=== PATIENT | male | born 1985 | race African-American/Black ===

== ENCOUNTER 2021-11-19 10:54 | Outpatient (REF) | payer SELFPAY ==
[2021-11-19 11:28] LABS: COVID-19 Test Positive (Negative); IDNOW Serial# 16C4AD1C
== END 2021-11-19 10:55 | disposition home or self-care (01) ==
LOC: HO.LAB 10:54
PROVIDERS: Visit Provider Internal Medicine
DX: Z20.822 Contact with and (suspected) exposure to COVID-19 (principal)
CPT/HCPCS: 87635; C9803

== ENCOUNTER 2022-06-14 09:17 | Outpatient (REF) | payer BC, SELFPAY ==
[2022-06-14 10:36] LABS: Hematocrit 38.5 % (42.0-52.0); Hemoglobin 13.2 g/dl (14.0-18.0); Mean Corpuscular HGB Conc 34.3 g/dl (31.0-36.0); Mean Corpuscular Hemoglobin 30.1 pg (27.0-33.0); Mean Corpuscular Volume 87.9 fL (80.0-98.0); Mean Platelet Volume 9.3 fL (9.4-12.4); Platelet Count 277 X10*3/uL (160-400); Red Blood Count 4.38 X10*6/uL (4.60-5.80); Red Cell Distribution Width 11.8 % (11.0-16.0); White Blood Count 4.7 X10*3/uL (4.8-10.8)
[2022-06-14 11:58] LABS: Alanine Aminotransferase 20 U/L (0-40); Alkaline Phosphatase 81 U/L (39-117); Anion Gap 14 (12-20); Aspartate Amino Transferase 16 U/L (5-37); Bilirubin Total 0.9 mg/dL (0.0-1.0); Blood Urea Nitrogen 18 mg/dL (9-16); Calcium 8.8 mg/dL (8.4-10.2); Carbon Dioxide 21 mmol/L (22-29); Chloride 109 mmol/L (96-108); Cholesterol 170 mg/dL; Estimated Glomerular Filt Rate > 60; Glucose Fasting 93 mg/dL (60-99); HDL Cholesterol 52 mg/dL; LDL Cholesterol Calculated 110 mg/dl; Potassium 4.4 mmol/L (3.3-5.1); Sodium 140 mmol/L (135-145); Total Protein 6.7 g/dL (6.5-8.0); Triglycerides 43 mg/dL
[2022-06-14 12:05] LABS: TSH reflex Free T4 0.34 uIU/mL (0.32-4.0); Vitamin D 25-OH Total 6.1 ng/mL (>30)
== END 2022-06-14 09:18 | disposition home or self-care (01) ==
LOC: HO.LAB 09:17
PROVIDERS: PCP Nurse Practitioner Family; Visit Provider Nurse Practitioner Family
DX: Z00.00 Encounter for general adult medical examination without abnormal findings (principal); E55.9 Vitamin D deficiency, unspecified
CPT/HCPCS: 36415; 80053; 80061; 82306; 84443; 85027

== ENCOUNTER 2022-10-10 12:16 | Outpatient (REF) | payer BC, SELFPAY ==
[2022-10-10 14:48] LABS: Hemoglobin 13.6 g/dl (14.0-18.0); Mean Corpuscular Volume 88.1 fL (80.0-98.0); Mean Platelet Volume 9.9 fL (9.4-12.4); Platelet Count 214 X10*3/uL (160-400); Red Blood Count 4.54 X10*6/uL (4.60-5.80); Red Cell Distribution Width 11.9 % (11.0-16.0); White Blood Count 4.8 X10*3/uL (4.8-10.8)
[2022-10-10 15:34] LABS: Vitamin D 25-OH Total 27.8 ng/mL (>30)
== END 2022-10-10 12:17 | disposition home or self-care (01) ==
LOC: HO.WFDLDS 12:16
PROVIDERS: Visit Provider Nurse Practitioner Family
DX: E55.9 Vitamin D deficiency, unspecified (principal); R03.0 Elevated blood-pressure reading, without diagnosis of hypertension
CPT/HCPCS: 36415; 82306; 85027

== ENCOUNTER 2022-10-13 16:11 | Outpatient (AMB) | payer BC, SELFPAY ==
--- NOTE | 2022-10-13 16:15 | MHC.PC.OV ---
Vital Signs 10/13/22 16:16 10/13/22 16:38 Height 6 ft 6 in Weight 294 lb 2 oz BMI 34.0 BP 136/84 160/110 H Blood Pressure Location Rt brachial Lt brachial Position Sitting Sitting Respiration 12 Pulse 65 Pulse Source Pulse Oximeter Temp 97.9 F Temp Source Temporal Artery Scan Pulse Oximetry (%) 98 Oxygen Delivery Method Room Air Intake Visit Reasons: 2 mos elevated BP Computer Support Specialist Required: No Accompanied by: Self / Same As Patient Allergies No Known Allergies [No Known Allergies*] Allergy (Verified 10/13/22 16:21) Tobacco use date assessed: 05/20/22 Dental Screening Dental Screen Date: 10/13/22 Did you have a dental visit in the last 12 months?: No Did you have a dental problem in the last 6 months where you did not have access to dental care?: Yes Was dental information given to patient?: Patient has dentist HPI HPI Comments History of Present Illness Details 36-year-old male presents for hypertension follow-up. He notes that he has been exercising and maintaining a low-sodium diet. No acute symptoms. He notes that his father has hypertension. He notes that his mother from recurrence of colon cancer almost 2 weeks ago and is grieving well. COUNT INCLUDES THE [facility] Medical History (Updated 10/13/22 @ 16:38 by Augustus Mast CNP) No pertinent past medical history Surgical History (Updated 10/13/22 @ 16:22 by Johanny Fleming MA) No pertinent past surgical history Family History (Updated 10/13/22 @ 16:23 by Johanny Fleming MA) Father Hypertension Mother Colon cancer Breast cancer Social History (Updated 05/20/22 @ 11:18 by Huyen Herndon MA) Household Members: Spouse Housing: Condominium Alcohol intake: current Alcohol intake frequency: a few times a week Alcohol type: hard liquor Patient Tobacco Use Status: Former Tobacco user e-Cigarette/Vaping Use: Currently Using service: No Current occupational status: employed 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 Leodan Schrader, Kayleen Grimes, Kaveh Lei and colleagues, with an educational zachariah from [employer]. Review of Systems Const Details: Const Denies chills, Denies fatigue, Denies fever(s), Denies headache(s) and Denies weakness ENT Denies dizziness and Denies headache(s) Card Denies chest pain, Denies lightheadedness, Denies dyspnea and Denies other (Palpitations) Resp Denies cough, Denies dyspnea, Denies wheezing and Denies other ( shortness of breath) GI Denies abdominal pain, Denies melena, Denies hematochezia, Denies change in bowel habits, Denies dyspepsia and Denies nausea Denies hematuria and Denies dysuria Musc Denies abnormal gait, Denies myalgias, Denies arthralgias, Denies numbness and Denies tingling Skin/Breast Denies rash, Denies unusual bruising and Denies wounds Neuro Denies abnormal gait, Denies dizziness, Denies headache(s), Denies memory loss, Denies numbness, Denies Sensory deficit (Neuro), Denies tingling and Denies weakness Psych Denies anxiety and Denies depression Endo Denies fatigue Aller/Immun Denies wheezing Physical exam (Primary Care) Tobacco/Smoking Status: Tobacco use Status Tobacco use date assessed 05/20/22 08/18/22 16:24 Patient Tobacco Use Status Never used Tobacco 08/18/22 16:24 Thrive Assessment: Date of Thrive Assessment Date Thrive assessed 05/20/22 08/18/22 16:24 Const Other: General: no acute distress and well developed Nutritional Appearance: well nourished Orientation/consciousness: patient oriented x3 HENMT Head: Yes normocephalic and Yes atraumatic Eyes General: appearance normal, both eyes and all related structures Pupils: Equal, round and reactive pupils present EOM: EOMs intact bilaterally Resp Effort & Inspection: normal respiratory effort Auscultation: clear to auscultation bilaterally Cardio Rate: regular rate Rhythm: regular rhythm Heart sounds: S1 normal heart sound present, S2 normal heart sound present, no gallops, no murmurs and no rubs GI Palpation (GI): No Abdominal aortic bruit present, Soft to palpation, nontender, No hepatosplenomegaly present and No Rebound tenderness present Auscultation: normal bowel sounds General: Yes no CVA tenderness Back/Spine/Pelvis Back: no CVA tenderness Cervical Spine: cervical ROM normal and No Cervical spine tenderness Thoracic/Lumbar Spine: thoraco-lumbar ROM normal, No pain with thoraco-lumbar ROM, No thoracic spinal tenderness and No lumbar spinal tenderness Extrem General: Yes normal to inspection, No edema and No calf tenderness Skin General: warm and dry. Normal skin color. Normal skin turgor Lesions: no lesions Rashes: no rashes Trauma: no lacerations or abrasions Wounds: no wounds Nails: normal Neuro General: patient oriented x3, gait normal and no focal neuro deficit Cranial nerves: Yes Equal, round and reactive pupils present Cognition (Neuro): normal cognition Gait exam (Neuro): Normal gait present Sensory Exam: No Sensory deficit (Neuro) Psych Affect: normal affect Assessment and Plan Assessment & Plan (1) Hypertension: Code(s): I10 - Essential (primary) hypertension Plan: His resting blood pressure is elevated, 160/110, above goal of less than 140/90 Amlodipine ordered. Take as prescribed Low-sodium diet and routine exercise encouraged Follow-up for nurse visit for blood pressure check in 1 week Return in 1 month or sooner with symptoms or concerns Verbalized understanding and agreed with treatment plan (2) Vitamin D deficiency: Code(s): E55.9 - Vitamin D deficiency, unspecified Plan: His vitamin-D level improved from 6.1 to 27.8 Continue to take Cholecalciferol as prescribed Sun exposure of may improve or maintain vitamin-D level Follow-up with symptoms or concerns Verbalized understanding and agreed with the treatment plan Medications: New amlodipine 5 mg PO DAILY 30 tabs 3RF 30 days Coding Level of Care Code Est Pt Level 3 (37268) Diagnoses Hypertension I10 Vitamin D deficiency E55.9 Time Spent (min) 25
[2022-10-13 16:16] VITALS: BP 136/84; PULSE 65; RESP 12; TEMP 36.6; O2SAT 98; BMI 34.0
[2022-10-13 16:38] VITALS: BP 160/110
== END 2022-10-13 16:38 | disposition home or self-care (01) ==
PROVIDERS: Visit Provider Nurse Practitioner Family
DX: I10 Essential (primary) hypertension (principal); E55.9 Vitamin D deficiency, unspecified
CPT/HCPCS: 99213

== ENCOUNTER 2022-11-07 11:46 | Outpatient (REF) | payer BC, SELFPAY ==
[2022-11-07 16:23] LABS: Ferritin 291 ng/mL (20-250)
[2022-11-08 01:45] LABS: Iron 109 mcg/dL (45-160); Percent Iron Saturation 43 % (15-50); Total Iron Binding Capacity 253 mcg/dL (228-428); Unsaturated Iron Binding 144 ug/dL
[2022-11-08 02:12] LABS: Folate 10.5 ng/mL (> or = 4.0); Vitamin B12 276 pg/mL (200-900)
== END 2022-11-07 11:47 | disposition home or self-care (01) ==
LOC: HO.WFDLDS 11:46
PROVIDERS: Visit Provider Nurse Practitioner Family
DX: D64.9 Anemia, unspecified (principal)
CPT/HCPCS: 36415; 82607; 82728; 82746; 83540

== ENCOUNTER 2022-11-14 15:43 | Outpatient (AMB) | payer BC, SELFPAY ==
--- NOTE | 2022-11-14 15:45 | MHC.PC.OV ---
Vital Signs 11/14/22 15:46 11/14/22 16:02 Height 6 ft 6 in Weight 292 lb BMI 33.7 BP 142/90 H 126/90 H Blood Pressure Location Rt brachial Rt brachial Position Sitting Sitting Respiration 14 Pulse 70 Pulse Source Pulse Oximeter Temp 98.7 F Temp Source Temporal Artery Scan Pulse Oximetry (%) 99 Oxygen Delivery Method Room Air Intake Visit Reasons: 1 mos htn Intake Note: Patient reports he is here to discuss blood pressure. Patient reports he is under stress. Inventory Specialist Required: No Accompanied by: Self / Same As Patient Allergies No Known Allergies [No Known Allergies*] Allergy (Verified 11/14/22 15:51) Tobacco use date assessed: 05/20/22 Dental Screening Dental Screen Date: 11/14/22 Did you have a dental visit in the last 12 months?: Yes Did you have a dental problem in the last 6 months where you did not have access to dental care?: No Was dental information given to patient?: Patient has dentist HPI HPI Comments History of Present Illness Details 37-year-old male presents for hypertension follow-up. Amlodipine was prescribed a month ago. He notes he has been taking the medication as prescribed. No acute symptoms today. 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 Cornelio, Kaveh Lei and colleagues, with an educational zachariah from [employer]. Review of Systems Const Details: Const Denies chills, Denies fatigue, Denies fever(s), Denies headache(s) and Denies weakness ENT Denies dizziness and Denies headache(s) Card Denies chest pain, Denies lightheadedness, Denies dyspnea and Denies other (Palpitations) Resp Denies cough, Denies dyspnea, Denies wheezing and Denies other ( shortness of breath) GI Denies abdominal pain, Denies melena, Denies hematochezia, Denies change in bowel habits, Denies dyspepsia and Denies nausea Denies hematuria and Denies dysuria Musc Denies abnormal gait, Denies myalgias, Denies arthralgias, Denies numbness and Denies tingling Skin/Breast Denies rash, Denies unusual bruising and Denies wounds Neuro Denies abnormal gait, Denies dizziness, Denies headache(s), Denies memory loss, Denies numbness, Denies Sensory deficit (Neuro), Denies tingling and Denies weakness Psych Denies anxiety, Denies depression, Denies memory loss Endo Denies cold intolerance, Denies fatigue, Denies heat intolerance, Denies polydipsia and Denies polyuria Aller/Immun Denies wheezing Physical exam (Primary Care) Vital Signs: Last Vital Signs Temp 98.7 F 11/14/22 15:46 Pulse 70 11/14/22 15:46 Resp 14 11/14/22 15:46 BP 142/90 H 11/14/22 15:46 Pulse Ox 99 11/14/22 15:46 Oxygen Delivery Method Room Air 11/14/22 15:46 BMI result Body Mass Index 33.7 Tobacco/Smoking Status: Tobacco use Status Tobacco use date assessed 05/20/22 11/14/22 15:52 Patient Tobacco Use Status Former Tobacco user 11/14/22 15:52 e-Cigarette/Vaping Use Currently Using 11/14/22 15:52 Thrive Assessment: Date of Thrive Assessment Date Thrive assessed 05/20/22 11/14/22 15:52 Const Other: General: no acute distress and well developed Nutritional Appearance: well nourished Orientation/consciousness: patient oriented x3 HENMT Head: Yes normocephalic and Yes atraumatic Eyes General: appearance normal, both eyes and all related structures Pupils: Equal, round and reactive pupils present EOM: EOMs intact bilaterally Resp Effort & Inspection: normal respiratory effort Auscultation: clear to auscultation bilaterally Cardio Rate: regular rate Rhythm: regular rhythm Heart sounds: S1 normal heart sound present, S2 normal heart sound present, no gallops, no murmurs and no rubs GI Palpation (GI): No Abdominal aortic bruit present, Soft to palpation, nontender, No hepatosplenomegaly present and No Rebound tenderness present Auscultation: normal bowel sounds General: Yes no CVA tenderness Back/Spine/Pelvis Back: no CVA tenderness Cervical Spine: cervical ROM normal and No Cervical spine tenderness Thoracic/Lumbar Spine: thoraco-lumbar ROM normal, No pain with thoraco-lumbar ROM, No thoracic spinal tenderness and No lumbar spinal tenderness Extrem General: Yes normal to inspection, No edema and No calf tenderness Skin General: warm and dry. Normal skin color. Normal skin turgor Lesions: no lesions Rashes: no rashes Trauma: no lacerations or abrasions Wounds: no wounds Nails: normal Neuro General: patient oriented x3, gait normal and no focal neuro deficit Cranial nerves: Yes Equal, round and reactive pupils present Cognition (Neuro): normal cognition Gait exam (Neuro): Normal gait present Sensory Exam: No Sensory deficit (Neuro) Psych Appearance: grossly normal Affect: normal affect Attitude: cooperative Thought process: Normal thought process present Assessment and Plan Assessment & Plan (1) Hypertension: Code(s): I10 - Essential (primary) hypertension Plan: Resting blood pressure is 126/90, slightly above goal of less than 140/90 Amlodipine as prescribed Low-sodium diet encouraged Follow-up in 2 months Return sooner with symptoms or concerns Verbalized understanding and agreed with treatment plan. Coding Level of Care Code Est Pt Level 3 (62262) Diagnoses Hypertension I10
[2022-11-14 15:46] VITALS: BP 142/90; PULSE 70; RESP 14; TEMP 37.1; O2SAT 99; BMI 33.7
[2022-11-14 16:02] VITALS: BP 126/90
== END 2022-11-14 16:09 | disposition home or self-care (01) ==
PROVIDERS: PCP Nurse Practitioner Family; Visit Provider Nurse Practitioner Family
DX: I10 Essential (primary) hypertension (principal)
CPT/HCPCS: 99213

== ENCOUNTER 2024-07-10 21:54 | Emergency (ER) | payer BC, SELFPAY ==
--- NOTE | ~2024-07-10 | XR_ITS ---
CLINICAL HISTORY: pain after punching wooden table --- Additional Notes or Special Instructions: can change order if needed. 3 view right hand Comparison: None Findings: No acute displaced fracture or dislocation of the right hand. Mild deformity of the 5th metacarpal appears old. Soft tissue swelling is nonspecific, including hypothenar region. Superficial opacities noted. IMPRESSION: 1. No acute fracture or dislocation. 2. Soft tissue swelling, including hypothenar region. This document has been electronically signed by: Channing Shah MD on 07/10/2024 22:58:24
[2024-07-10 22:07] VITALS: BP 164/95; PULSE 67; RESP 18; TEMP 36.1; O2SAT 98; BMI 32.9
--- NOTE | 2024-07-11 01:02 | ED.EXTPRO ---
HPI - Extremity Problem General Chief complaint: Extremity Injury, Upper Stated complaint: R hand laceration Time Seen by Provider: 07/11/24 00:07 Source: patient Limitations: no limitations History of Present Illness ED Provider: Brii Sousa PA-C HPI Narrative: 38-year-old male presents with right hand laceration. Patient states he struck his hand on a wooden table, sustaining a laceration over the 4th digit. Patient able to fully range the finger, no paresthesia. Tetanus up-to-date. Related Data Previous Rx's ?Medication ?Instructions ?Recorded cholecalciferol (vitamin D3) 25 25 mcg PO DAILY 90 days #90 tabs 06/14/22 mcg (1,000 unit) tablet amlodipine 5 mg tablet 5 mg PO DAILY 30 days #30 tabs 10/13/22 Allergies Allergy/AdvReac Type Severity Reaction Status Date / Time No Known Allergies Allergy Verified 07/10/24 22:09 [No Known Allergies*] Review of Systems Review of Systems: Yes all other systems are reviewed and are negative Constitutional: Constitutional: Denies fatigue and Denies fever(s) Musculoskeletal: Musculoskeletal: Reports arthralgias and Reports joint swelling Endocrine: Endocrine: Denies fatigue PMFSH Past Medical History Attestation statement: The following information was validated with the patient. Medical History No pertinent past medical history Surgical History No pertinent past surgical history Family History Family History Father Hypertension Mother Colon cancer Breast cancer Social History Social History Household Members: Spouse 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 Current occupational exposures/hazards: Yes Cognitive needs: No Hearing needs: No Vision needs: No Physical Exam Vital Signs: Vital Signs: Last Vital Signs Temp 98.1 F 07/11/24 01:08 Pulse 91 07/11/24 01:08 Resp 16 07/11/24 01:08 BP 158/99 H 07/11/24 01:08 Pulse Ox 99 07/11/24 01:08 O2 Del Method Room Air 07/11/24 01:08 BMI result Body Mass Index 32.9 Const: Other: Alert Orientation/consciousness: patient oriented x3 Resp: Effort & Inspection: normal respiratory effort Cardio: Other: Normal peripheral perfusion Skin: Other: Warm dry no rash Neuro: General: patient oriented x3, gait normal, no focal motor deficits and CN's II-XI intact bilaterally Extrem: Other: 4 cm irregular laceration over the MCP of the 4th digit of the right hand, no longer bleeding, patient able to fully flex and extend from MCP, PIP and DIP Psych: Other: Cooperative Medical Decision Making Medical Decision Making MDM Narrative: 38-year-old male presents with right hand laceration. Patient states he struck his hand on a wooden table, sustaining a laceration over the 4th digit. Patient able to fully range the finger, no paresthesia. Tetanus up-to-date. No chronic issues History: Per patient I have considered the following differential diagnoses: Fracture, dislocation, open fracture, laceration Plan: X-ray obtained from triage, there was no communication with the bone, laceration will require simple repair I have independently reviewed the following tests: X-ray right hand:IMPRESSION: 1. No acute fracture or dislocation. 2. Soft tissue swelling, including hypothenar region. Procedures Laceration Laceration 1: Site: hand Side (If applicable): right Size (cm): 4 Description: irregular Depth: simple, single layer Local Anesthetic: lidocaine 1% and with epi Amount of anesthesia used (mL): 6 Pre-repair: irrigated extensively Skin layer closed with: nylon Size (cm): 3-0 Number of sutures: 7 Technique: simple, interrupted Discharge Plan Discharge Clinical Impression: Laceration of hand, right Patient Disposition: Home, Self-Care Instructions: Laceration (ED) Additional Instructions: 7 stitches were used to repair the laceration. They can be removed in 7 days. See home care instructions. Keep the area clean and dry. Watch for signs of infection which would include redness, swelling, warmth, pus draining from the site, a red line tracking up your arm or fever. If you develop any of these symptoms seek medical attention. Prescriptions: No Action cholecalciferol (vitamin D3) 25 mcg (1,000 unit) tablet 25 mcg PO DAILY 90 Days Qty: 90 4RF amlodipine 5 mg tablet 5 mg PO DAILY 30 Days Qty: 30 3RF Stand Alone Forms: Work/School Release Interventions: ED Discharge Assessment Last Done: 07/11/24 01:08 Discharge Date/Time: 07/11/24 01:09 Print Language: Italian
[2024-07-11 01:08] VITALS: BP 158/99; PULSE 91; RESP 16; TEMP 36.7; O2SAT 99
== END 2024-07-11 01:09 | disposition home or self-care (01) ==
PROVIDERS: Emergency Provider Emergency Medicine
DX: S61.411A Laceration without foreign body of right hand, initial encounter (principal); W22.09XA Striking against other stationary object, initial encounter; Y93.89 Activity, other specified; Y92.9 Unspecified place or not applicable; Y99.9 Unspecified external cause status
CPT/HCPCS: 12042; 73120; 99283; 99284; J2004

== ENCOUNTER → 2024-07-10 22:10 | Outpatient (BNV) | payer BC, SELFPAY | PROVIDERS: Visit Provider Radiology Neuroradiology | DX: R22.31 Localized swelling, mass and lump, right upper limb (principal); W22.09XA Striking against other stationary object, initial encounter | CPT/HCPCS: 73120 ==

== ENCOUNTER 2024-07-19 16:19 | Emergency (ER) | payer BC, SELFPAY ==
[2024-07-19 16:27] VITALS: BP 168/108; PULSE 67; RESP 20; TEMP 36.5; O2SAT 98; BMI 32.9
--- NOTE | 2024-07-19 16:33 | ED_ITS ---
HPI - General Adult General Chief complaint: Wound/Laceration Stated complaint: R Hand Removal of Stitches Time Seen by Provider: 07/19/24 16:27 Source: patient Mode of arrival: ambulatory Limitations: no limitations History of Present Illness ED Provider: KIMBER GRIGSBY PA-C HPI narrative: 38 year old male presents to the ED today requesting suture removal. Patient was evaluated at our facility on 07/11/24 for laceration to the base of his right 5th digit after punching a wooden table out of anger. He had 7 sutures placed and was discharged home. He states the area has been healing well. No concerns. No discharge or surrounding erythema. No fever/chills. No difficulty with ROM of digit or wrist. Related Data Previous Rx's ?Medication ?Instructions ?Recorded cholecalciferol (vitamin D3) 25 25 mcg PO DAILY 90 days #90 tabs 06/14/22 mcg (1,000 unit) tablet amlodipine 5 mg tablet 5 mg PO DAILY 30 days #30 tabs 10/13/22 Allergies Allergy/AdvReac Type Severity Reaction Status Date / Time No Known Allergies Allergy Verified 07/19/24 16:30 [No Known Allergies*] Review of Systems Review of Systems: Yes all other systems are reviewed and are negative PMFSH Past Medical History Attestation statement: The following information was validated with the patient. Source: old records reviewed and nursing notes reviewed Medical History No pertinent past medical history Surgical History No pertinent past surgical history Family History Family History Father Hypertension Mother Colon cancer Breast cancer Social History Social History Household Members: Spouse Housing: Condominium Alcohol intake: current Alcohol intake frequency: a few times a week Alcohol type: hard liquor Patient Tobacco Use Status: Former Tobacco user e-Cigarette/Vaping Use: Currently Using Advance Directives: No Advance Directives Information Provided: No service: No Current occupational status: employed 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 Skin: +see below Head: Normocephalic, atraumatic. EENT: Hearing is intact b/l. Conjunctiva clear. PERRLA. EOM intact. Moist mucous membranes.? Neck: Supple without LAD. FROM. Trachea midline.? Lungs: Normal respiratory effort without accessory muscle use Ext: + noted 1.5 cm linear laceration to base of right pinky with [address] Appears to be healing well, no surrounding erythema or discharge. No noted dehiscence of wound. No warmth. Full ROM intact to right 5th digit specifically at MCP. Neuro: AOx3. Normal speech. Ambulating with steady gait. Course Course Course Narrative: Seven sutures removed from laceration at base of right pinky. Performed by my PA student Beka with patient's consent. Patient tolerated well. No noted dehiscence. Reinforced with Dermabond. No concern for infection. Patient has remained stable throughout ED visit today. Discussed worrisome signs and symptoms and when to return to the ED. All questions answered at this time. Patient is agreeable with disposition and stable for discharge. Medical Decision Making Medical Decision Making MDM Narrative: 38 year old male presents to the ED today requesting suture removal. Hypertensive, vitals otherwise WNL. He is nontoxic appearing in no acute distress. On exam of right hand, noted 1.5 cm linear laceration to base of right pinky with [address] Appears to be healing well, no surrounding erythema or discharge. No noted dehiscence of wound. No warmth. Full ROM intact to right 5th digit specifically at MCP. Differential diagnosis includes healing laceration. Unlikely dehiscence, cellulitis, infection. Plan for suture removal and disposition. Differential Diagnosis Differential Diagnoses: The differential diagnosis associated with the presentation includes as above. Admission/Observation not indicated. External Record Review External record reviewed: Inpatient record Social Determinants Patient?s care significantly limited by Social Determinants of Health including: Other Social Determinant of Health Critical Care Time Critical Care Time Critical Care Time: No Discharge Plan Discharge Clinical Impression: Encounter for removal of sutures Patient Disposition: Home, Self-Care Instructions: Stitches Removal (ED) Additional Instructions: You have been evaluated in the Emergency Department today for suture removal.? Your sutures were removed and your wound is healing well.? You can wash the area freely now. Keep your wound out of the sunlight for six months to reduce the appearance of scarring. You should cover your scar or use high SPF sunscreen protection. Please follow up with your primary care provider at your next scheduled appointment. Return to the ER immediately signs of infection to your wounds such as worsening pain, worsening redness/swelling, discharge/pus from your wounds, or for any other concerning symptoms. Prescriptions: No Action cholecalciferol (vitamin D3) 25 mcg (1,000 unit) tablet 25 mcg PO DAILY 90 Days Qty: 90 4RF amlodipine 5 mg tablet 5 mg PO DAILY 30 Days Qty: 30 3RF Referrals: Augustus Mast CNP [Primary Care Provider] - Interventions: ED Discharge Assessment Last Done: 07/19/24 16:43 Discharge Date/Time: 07/19/24 16:44 Print Language: Japanese
[2024-07-19 16:43] VITALS: BP 168/108; PULSE 67; RESP 20; TEMP 36.5; O2SAT 98
== END 2024-07-19 16:44 | disposition home or self-care (01) ==
PROVIDERS: Emergency Provider Emergency Medicine; PCP Nurse Practitioner Family
DX: Z48.02 Encounter for removal of sutures (principal); S61.216D Laceration without foreign body of right little finger without damage to nail, subsequent encounter; W22.09XD Striking against other stationary object, subsequent encounter
CPT/HCPCS: 99282